=== PATIENT | female | born 1960 ===

== ENCOUNTER 2020-05-22 17:47 | Inpatient (IN) ==
[2020-05-22] MEDS ORDERED: HYDROmorphone 2 MG/1 ML VIAL IV ONE (21:15)
[2020-05-22] MEDS ORDERED: ONDANSETRON 4 MG/2 ML VIAL IV ONE (21:15)
[2020-05-22] MEDS ORDERED: GLUCAGON 1 MG VIAL IM PRN (21:34)
[2020-05-22] MEDS ORDERED: ONDANSETRON 4 MG/2 ML VIAL IV PRN (21:34)
[2020-05-22] MEDS ORDERED: DOCUSATE SODIUM 100 MG CAPSULE PO PRN (21:34)
[2020-05-22] MEDS ORDERED: DEXTROSE 50% 25 GM/50 ML VIAL IV PRN (21:34)
[2020-05-22] MEDS ORDERED: INFLUENZA VIRUS VACCINE 0.5 ML SYRINGE IM ONE (21:53)
[2020-05-22] MEDS ORDERED: VANCOMYCIN INJ 1,000 MG in SODIUM CHLORIDE 0.9% 250 ML IV SCH (22:00)
[2020-05-22] MEDS: INSULIN REGULAR 100 UNIT/ML SUBCUT SCH (22:25)
[2020-05-22] MEDS: ENOXAPARIN 40 MG/0.4 ML SYRINGE SUBCUT SCH (22:29)
[2020-05-22] MEDS: SODIUM CHLORIDE 0.9% 1,000 ML IV SCH (22:29)
[2020-05-22] MEDS: PIPERACILLIN/TAZOBACTAM 3,375 MG in SODIUM CHLORIDE 0.9% 100 ML IV SCH (22:29)
[2020-05-22] MEDS: MICONAZOLE 2% CREAM 57 GM TUBE TOP SCH (22:59)
[2020-05-23] MEDS: VANCOMYCIN INJ 1,000 MG in SODIUM CHLORIDE 0.9% 250 ML IV SCH ×2 (03:57→14:53)
[2020-05-23] MEDS: HYDROmorphone 2 MG/1 ML VIAL IV PRN ×3 (03:58→19:39)
[2020-05-23] MEDS: ACETAMINOPHEN 325 MG TABLET PO PRN (05:36)
[2020-05-23] MEDS: PIPERACILLIN/TAZOBACTAM 3,375 MG in SODIUM CHLORIDE 0.9% 100 ML IV SCH ×3 (05:37→22:35)
[2020-05-23 05:38] LABS: Basophils % 0.3 % (0.0-0.8); Eosinophils % 0.2 % (0.00-10.9); Hematocrit 32.3 VOL% (35.7-47.0); Hemoglobin 10.4 GM/DL (12.0-16.0); Immature Granulocytes Absolute 0.13 #; Lymphocytes # 1.8 10*3/uL (1.4-4.0); Mean Corpuscular HGB Conc 32.2 GM/DL (32-36); Mean Corpuscular Volume 92.6 FL (87-102); Mean Platelet Volume 9.9 FL (9.6-12.0); Monocytes % 9.6 % (1.7-12.7); Neutrophils % 74.9 % (38.7-73.9); Platelet Count 402 T/CUMM (130-400); Red Blood Count 3.49 MC/CUMM (3.8-5.5); White Blood Count 12.5 T/CUMM (4-12)
[2020-05-23 05:52] LABS: Albumin 2.2 G/DL (3.4-5.0); Bilirubin,Total 0.9 MG/DL (0.2-1.0); Calcium 8.5 MG/DL (8.5-10.1); Osmolality,Calculated 275.2 MOS/KG (273-304)
[2020-05-23] MEDS ORDERED: ceFAZolin 1,000 MG in SYRINGE 1 EACH IV ONE (07:40)
[2020-05-23] MEDS: INSULIN REGULAR 100 UNIT/ML SUBCUT SCH ×4 (08:19→22:35)
[2020-05-23] MEDS: MICONAZOLE 2% CREAM 57 GM TUBE TOP SCH ×2 (08:32→22:35)
[2020-05-23] MEDS: lisinopriL 2.5 MG TABLET PO SCH (08:32)
[2020-05-23] MEDS ORDERED: BUPIVACAINE MPF 0.25% 30 ML VIAL ONE (08:37)
[2020-05-23] MEDS ORDERED: LIDOCAINE 1%/EPI INJ 20 ML VIAL ONE (08:38)
[2020-05-23] MEDS ORDERED: propofoL 200 MG/20 ML VIAL IV ONE (09:46)
[2020-05-23] MEDS ORDERED: LIDOCAINE 2% 5 ML VIAL ONE (09:46)
[2020-05-23] MEDS ORDERED: fentaNYL 100 MCG/2 ML VIAL ONE (09:46)
[2020-05-23] MEDS ORDERED: SEVOFLURANE 1 UNIT/15 MINUTE INH ONE (09:46)
[2020-05-23] MEDS ORDERED: MIDAZOLAM 2 MG/2 ML VIAL ONE (09:46)
[2020-05-23] MEDS ORDERED: ONDANSETRON 4 MG/2 ML VIAL ONE (09:46)
[2020-05-23] MEDS ORDERED: PHENYLEPHRINE 1 MG/10 ML SYRINGE IV ONE (09:46)
[2020-05-23] MEDS ORDERED: HYDROmorphone 2 MG/1 ML VIAL IV PRN (09:56)
[2020-05-23] MEDS ORDERED: ONDANSETRON 4 MG/2 ML VIAL IV PRN (09:56)
[2020-05-23] MEDS: GABAPENTIN 300 MG CAPSULE PO SCH ×3 (11:55→22:35)
[2020-05-23] MEDS: SODIUM CHLORIDE 0.9% 1,000 ML IV SCH ×2 (15:55→21:10)
[2020-05-23] MEDS: ENOXAPARIN 40 MG/0.4 ML SYRINGE SUBCUT SCH (22:35)
[2020-05-24] MEDS: ACETAMINOPHEN 325 MG TABLET PO PRN (01:09)
[2020-05-24] MEDS: SODIUM CHLORIDE 0.9% 1,000 ML IV SCH ×2 (02:32→09:49)
[2020-05-24] MEDS: VANCOMYCIN INJ 1,000 MG in SODIUM CHLORIDE 0.9% 250 ML IV SCH ×2 (04:20→14:40)
[2020-05-24] MEDS: PIPERACILLIN/TAZOBACTAM 3,375 MG in SODIUM CHLORIDE 0.9% 100 ML IV SCH ×2 (05:55→14:01)
[2020-05-24 06:21] LABS: Basophils % 0.3 % (0.0-0.8); Eosinophils % 0.3 % (0.00-10.9); Hematocrit 28.8 VOL% (35.7-47.0); Hemoglobin 9.4 GM/DL (12.0-16.0); Immature Granulocytes % 1.1 %; Immature Granulocytes Absolute 0.13 #; Lymphocytes # 2.2 10*3/uL (1.4-4.0); Lymphocytes % 18.6 % (21.3-54.2); Mean Corpuscular HGB Conc 32.6 GM/DL (32-36); Mean Platelet Volume 9.6 FL (9.6-12.0); Monocytes % 10.4 % (1.7-12.7); Neutrophils % 69.3 % (38.7-73.9); Platelet Count 310 T/CUMM (130-400); Red Blood Count 3.13 MC/CUMM (3.8-5.5); Red Cell Distribution Width 13.2 % (9.3-17.3); White Blood Count 11.8 T/CUMM (4-12)
[2020-05-24 06:49] LABS: Albumin 1.8 G/DL (3.4-5.0); Bilirubin,Total 0.7 MG/DL (0.2-1.0); Calcium 8.4 MG/DL (8.5-10.1); Total Protein 6.4 G/DL (6.4-8.3)
[2020-05-24] MEDS: MICONAZOLE 2% CREAM 57 GM TUBE TOP SCH (08:39)
[2020-05-24] MEDS: INSULIN REGULAR 100 UNIT/ML SUBCUT SCH ×2 (08:39→11:10)
[2020-05-24] MEDS: GABAPENTIN 300 MG CAPSULE PO SCH ×2 (08:39→14:58)
[2020-05-24] MEDS: lisinopriL 2.5 MG TABLET PO SCH (08:39)
[2020-05-24] MEDS: HYDROmorphone 2 MG/1 ML VIAL IV PRN (08:40)
[2020-05-24 11:22] VITALS: BP 128/57
== END 2020-05-24 15:15 | disposition home or self-care (01) | DRG 579 ==
LOC: N.2E → SUATTDRO 20:23
PROVIDERS: ADMIT Internal Medicine; ATTEND Internal Medicine

== ENCOUNTER 2021-05-23 19:33 | Inpatient (IN) ==
[2021-05-23] MEDS ORDERED: SODIUM CHLORIDE 0.9% 1,000 ML IV STA (20:00)
[2021-05-23 20:16] LABS: Basophils # 0.1 10*3/uL (0.0-0.2); Basophils % 0.6 % (0.0-0.8); Eosinophils # 0.1 10*3/uL (0.0-0.87); Eosinophils % 1.6 % (0.00-10.9); Hematocrit 30.3 VOL% (35.7-47.0); Hemoglobin 9.8 GM/DL (12.0-16.0); Immature Granulocytes % 1.4 %; Immature Granulocytes Absolute 0.12 #; Lymphocytes # 2.6 10*3/uL (1.4-4.0); Lymphocytes % 29.2 % (21.3-54.2); Mean Corpuscular HGB Conc 32.3 GM/DL (32-36); Mean Corpuscular Volume 90.2 FL (87-102); Mean Platelet Volume 8.9 FL (9.6-12.0); Monocytes % 4.9 % (1.7-12.7); Neutrophils % 62.3 % (38.7-73.9); Platelet Count 397 T/CUMM (130-400); Red Blood Count 3.36 MC/CUMM (3.8-5.5); Red Cell Distribution Width 12.7 % (9.3-17.3); White Blood Count 8.8 T/CUMM (4-12)
[2021-05-23 20:52] LABS: Albumin 2.6 G/DL (3.4-5.0); Bilirubin,Total 0.9 MG/DL (0.20-1.00); Calcium 8.9 MG/DL (8.5-10.1); Osmolality,Calculated 279.4 MOS/KG (273-304); Potassium 4.4 MMOL/L (3.5-5.1); Total Protein 8.3 G/DL (6.4-8.2)
[2021-05-23] MEDS ORDERED: INSULIN REGULAR 100 UNIT/ML SUBCUT STA (21:20)
[2021-05-23] MEDS ORDERED: INFLUENZA VIRUS VACCINE 0.5 ML SYRINGE IM ONE (22:25)
[2021-05-23] MEDS ORDERED: SIMETHICONE CHEW 125 MG TABLET PO PRN (23:04)
[2021-05-23] MEDS ORDERED: MAGNESIUM SULF RIDER 2 GM/50 ML PREMIX IV PRN (23:04)
[2021-05-23] MEDS ORDERED: GLUCAGON 1 MG VIAL IM PRN (23:04)
[2021-05-23] MEDS ORDERED: DEXTROSE 50% 25 GM/50 ML VIAL IV PRN ×2 (23:04)
[2021-05-23] MEDS ORDERED: ACETAMINOPHEN 325 MG TABLET PO PRN (23:04)
[2021-05-23] MEDS ORDERED: hydrALAZINE 20 MG/1 ML VIAL IV PRN (23:04)
[2021-05-23] MEDS ORDERED: MAGNESIUM SULF RIDER 4 GM/100 ML PREMIX IV PRN (23:04)
[2021-05-23] MEDS ORDERED: ONDANSETRON 4 MG/2 ML VIAL IV PRN (23:04)
[2021-05-23] MEDS ORDERED: POTASSIUM CHLORIDE RIDER 10 MEQ/100 ML PREMIX IV PRN (23:27)
[2021-05-24] MEDS: SODIUM CHLORIDE 0.9% 1,000 ML IV SCH ×2 (00:15→09:05)
[2021-05-24] MEDS: PIPERACILLIN/TAZOBACTAM 3,375 MG in SODIUM CHLORIDE 0.9% 100 ML IV SCH ×3 (00:19→16:36)
[2021-05-24 05:15] LABS: Basophils # 0.1 10*3/uL (0.0-0.2); Basophils % 0.8 % (0.0-0.8); Eosinophils # 0.2 10*3/uL (0.0-0.87); Eosinophils % 2.6 % (0.00-10.9); Hematocrit 30.7 VOL% (35.7-47.0); Hemoglobin 9.9 GM/DL (12.0-16.0); Immature Granulocytes % 1.5 %; Immature Granulocytes Absolute 0.12 #; Lymphocytes # 3.2 10*3/uL (1.4-4.0); Lymphocytes % 40.6 % (21.3-54.2); Mean Corpuscular HGB Conc 32.2 GM/DL (32-36); Mean Corpuscular Volume 91.4 FL (87-102); Mean Platelet Volume 8.7 FL (9.6-12.0); Monocytes % 5.9 % (1.7-12.7); Neutrophils % 48.6 % (38.7-73.9); Platelet Count 371 T/CUMM (130-400); Red Blood Count 3.36 MC/CUMM (3.8-5.5); Red Cell Distribution Width 12.9 % (9.3-17.3); White Blood Count 7.8 T/CUMM (4-12)
[2021-05-24 05:48] LABS: Calcium 8.8 MG/DL (8.5-10.1); Osmolality,Calculated 273.4 MOS/KG (273-304); Thyroid Stimulating Hormone 0.86 uIU/ml (0.358-3.74)
[2021-05-24] MEDS ORDERED: INSULIN GLARGINE 100 UNIT/ML SUBCUT SCH (09:00)
[2021-05-24] MEDS: GABAPENTIN 300 MG CAPSULE PO SCH ×3 (09:03→20:47)
[2021-05-24] MEDS: INSULIN REGULAR 100 UNIT/ML SUBCUT SCH ×4 (09:04→20:47)
[2021-05-24] MEDS: CHOLECALCIFEROL 1,000 UNIT TABLET PO SCH (09:04)
[2021-05-24] MEDS: PANTOPRAZOLE 40 MG TABLET PO SCH (09:04)
[2021-05-24] MEDS: DOCUSATE SODIUM 100 MG CAPSULE PO SCH ×2 (09:04→20:47)
[2021-05-24] MEDS ORDERED: BUPIVACAINE MPF 0.25% 30 ML VIAL ONE (09:38)
[2021-05-24] MEDS ORDERED: LIDOCAINE 1%/EPI INJ 20 ML VIAL ONE (09:38)
[2021-05-24] MEDS ORDERED: propofoL 200 MG/20 ML VIAL IV ONE (09:51)
[2021-05-24] MEDS ORDERED: fentaNYL 100 MCG/2 ML VIAL ONE (09:51)
[2021-05-24] MEDS ORDERED: SEVOFLURANE 1 UNIT/15 MINUTE INH ONE (09:51)
[2021-05-24] MEDS ORDERED: LIDOCAINE 2% 5 ML VIAL ONE (09:51)
[2021-05-24] MEDS ORDERED: MIDAZOLAM 2 MG/2 ML VIAL ONE (10:19)
[2021-05-24] MEDS ORDERED: PHENYLEPHRINE 10 MG/1 ML VIAL IV ONE (10:26)
[2021-05-24] MEDS ORDERED: LACTATED RINGERS 1,000 ML IV SCH (10:30)
[2021-05-24] MEDS: VANCOMYCIN INJ 1,000 MG in SODIUM CHLORIDE 0.9% 250 ML IV SCH (10:48)
[2021-05-24] MEDS: INSULIN LISPRO 100 UNIT/ML SUBCUT SCH (16:36)
[2021-05-25] MEDS: SODIUM CHLORIDE 0.9% 1,000 ML IV SCH ×2 (00:25→09:20)
[2021-05-25] MEDS: PIPERACILLIN/TAZOBACTAM 3,375 MG in SODIUM CHLORIDE 0.9% 100 ML IV SCH ×3 (00:27→15:31)
[2021-05-25] MEDS: VANCOMYCIN INJ 1,000 MG in SODIUM CHLORIDE 0.9% 250 ML IV SCH ×2 (04:00→20:58)
[2021-05-25 07:25] LABS: Basophils # 0.1 10*3/uL (0.0-0.2); Basophils % 0.8 % (0.0-0.8); Eosinophils # 0.1 10*3/uL (0.0-0.87); Eosinophils % 1.9 % (0.00-10.9); Hematocrit 29.2 VOL% (35.7-47.0); Hemoglobin 9.5 GM/DL (12.0-16.0); Immature Granulocytes % 1.1 %; Immature Granulocytes Absolute 0.08 #; Lymphocytes # 2.8 10*3/uL (1.4-4.0); Mean Corpuscular HGB Conc 32.5 GM/DL (32-36); Mean Corpuscular Volume 92.7 FL (87-102); Mean Platelet Volume 9.3 FL (9.6-12.0); Monocytes % 6.3 % (1.7-12.7); Neutrophils % 51.9 % (38.7-73.9); Platelet Count 389 T/CUMM (130-400); Red Blood Count 3.15 MC/CUMM (3.8-5.5); Red Cell Distribution Width 12.7 % (9.3-17.3); White Blood Count 7.3 T/CUMM (4-12)
[2021-05-25 07:50] LABS: Calcium 8.8 MG/DL (8.5-10.1); Osmolality,Calculated 276.1 MOS/KG (273-304); Potassium 3.8 MMOL/L (3.5-5.1)
[2021-05-25] MEDS: INSULIN GLARGINE 100 UNIT/ML SUBCUT SCH (09:13)
[2021-05-25] MEDS: PANTOPRAZOLE 40 MG TABLET PO SCH (09:13)
[2021-05-25] MEDS: DOCUSATE SODIUM 100 MG CAPSULE PO SCH ×2 (09:13→20:58)
[2021-05-25] MEDS: CHOLECALCIFEROL 1,000 UNIT TABLET PO SCH (09:13)
[2021-05-25] MEDS: GABAPENTIN 300 MG CAPSULE PO SCH ×3 (09:13→20:58)
[2021-05-25] MEDS: INSULIN REGULAR 100 UNIT/ML SUBCUT SCH ×4 (09:14→21:22)
[2021-05-25] MEDS: INSULIN LISPRO 100 UNIT/ML SUBCUT SCH ×3 (09:14→17:00)
[2021-05-25] MEDS: SODIUM HYPOCHLORITE 0.25% IRRIG 473 ML BOTTLE TOP SCH (12:16)
[2021-05-26] MEDS: PIPERACILLIN/TAZOBACTAM 3,375 MG in SODIUM CHLORIDE 0.9% 100 ML IV SCH ×3 (00:58→17:30)
[2021-05-26] MEDS: GABAPENTIN 300 MG CAPSULE PO SCH ×3 (08:46→20:25)
[2021-05-26] MEDS: INSULIN GLARGINE 100 UNIT/ML SUBCUT SCH (08:46)
[2021-05-26] MEDS: INSULIN LISPRO 100 UNIT/ML SUBCUT SCH ×3 (08:46→17:30)
[2021-05-26] MEDS: INSULIN REGULAR 100 UNIT/ML SUBCUT SCH ×4 (08:46→21:05)
[2021-05-26] MEDS: DOCUSATE SODIUM 100 MG CAPSULE PO SCH ×2 (08:47→20:25)
[2021-05-26] MEDS: PANTOPRAZOLE 40 MG TABLET PO SCH (08:47)
[2021-05-26] MEDS: CHOLECALCIFEROL 1,000 UNIT TABLET PO SCH (08:47)
[2021-05-26] MEDS: SODIUM HYPOCHLORITE 0.25% IRRIG 473 ML BOTTLE TOP SCH (08:47)
[2021-05-26 09:33] LABS: Calcium 9.3 MG/DL (8.5-10.1); Potassium 3.6 MMOL/L (3.5-5.1)
[2021-05-26] MEDS: VANCOMYCIN INJ 1,000 MG in SODIUM CHLORIDE 0.9% 250 ML IV SCH (17:30)
[2021-05-27] MEDS: PIPERACILLIN/TAZOBACTAM 3,375 MG in SODIUM CHLORIDE 0.9% 100 ML IV SCH (00:49)
[2021-05-27] MEDS ORDERED: LEVOFLOXACIN 750 MG TABLET PO SCH (09:00)
[2021-05-27] MEDS: INSULIN LISPRO 100 UNIT/ML SUBCUT SCH ×3 (09:16→16:34)
[2021-05-27] MEDS: PANTOPRAZOLE 40 MG TABLET PO SCH (09:17)
[2021-05-27] MEDS: CHOLECALCIFEROL 1,000 UNIT TABLET PO SCH (09:17)
[2021-05-27] MEDS: SODIUM HYPOCHLORITE 0.25% IRRIG 473 ML BOTTLE TOP SCH (09:17)
[2021-05-27] MEDS: DOCUSATE SODIUM 100 MG CAPSULE PO SCH (09:17)
[2021-05-27] MEDS: INSULIN GLARGINE 100 UNIT/ML SUBCUT SCH (09:17)
[2021-05-27] MEDS: INSULIN REGULAR 100 UNIT/ML SUBCUT SCH ×3 (09:17→16:34)
[2021-05-27] MEDS: GABAPENTIN 300 MG CAPSULE PO SCH ×2 (09:17→16:33)
[2021-05-27 17:09] VITALS: BP 111/77
[2021-05-28] MEDS ORDERED: Semaglutide [Ozempic] 0.25 mg or 0.5 mg(2 mg/1.5 mL) Pen Injecto SUBCUT SCH (09:00)
== END 2021-05-27 18:17 | disposition home or self-care (01) | DRG 623 ==
LOC: EDBD → EDUNIT# → N.ED 19:33 → N.EDINP 21:34 → N.3E 22:08
PROVIDERS: ADMIT Internal Medicine; ATTEND Internal Medicine